=== PATIENT | female | born 1995 | race Caucasian/White ===

== ENCOUNTER → 2020-06-15 | Outpatient (REF) | payer OTHER, MEDICAID ==
[~2020-06-15] MED LIST: LEVO125T4 PO
[2020-06-15 17:40] LABS: ALBUMIN 4.5 GM/DL (3.2-5.2); ALT/SGPT 23 U/L (12-78); BILIRUBIN,TOTAL 0.7 MG/DL (0.2-1.0); BLOOD UREA NITROGEN 16 MG/DL (7-18); CALCIUM LEVEL 8.9 MG/DL (8.5-10.1); CARBON DIOXIDE LEVEL 27 MEQ/L (21-32); CHLORIDE LEVEL 107 MEQ/L (98-107); CHOLESTEROL LEVEL 210 MG/DL (<200); CHOLESTEROL RISK RATIO 3.333 (<5); GLOMERULAR FILTRATION RATE > 60.0 (>60); GLUCOSE, FASTING 78 MG/DL (70-100); HDL CHOLESTEROL 63 MG/DL (>40); LDL CHOLESTEROL 129 MG/DL (<100); NON-HDL-C 147 MG/DL; POTASSIUM SERUM 3.8 MEQ/L (3.5-5.1); SODIUM LEVEL 141 MEQ/L (136-145); TRIGLYCERIDES LEVEL 88 MG/DL (<150)
== END ==
LOC: M LAB REF 16:26
PROVIDERS: ATTEND Family Medicine Addiction Medicine
DX: I78.1 Nevus, non-neoplastic (principal); E03.8 Other specified hypothyroidism

== ENCOUNTER 2020-06-23 20:32 | Emergency (ER) | payer OTHER, MEDICAID ==
[~2020-06-23] VITALS: Ht 175.3 cm; Wt 51.6 kg
[2020-06-23] MEDS ORDERED: LEVO125T4 PO (20:40)
--- NOTE | 2020-06-23 21:34 | REPVR ---
PROCEDURE INFORMATION: Exam: XR Right Ankle Exam date and time: 06/23/2020 9:05 PM Age: 25 years old Clinical indication: Pain; Ankle; Right; Additional info: Pain after fall TECHNIQUE: Imaging protocol: XR Right ankle. Views: 3 or more views. COMPARISON: No relevant prior studies available. FINDINGS: Bones/joints: There is no fracture or dislocation. The ankle mortise is symmetric. The joint spaces are preserved. No arthropathy is noted. Incidental note is made of a bone island in the anterior portion of the right calcaneus. Soft tissues: Unremarkable. IMPRESSION: No fracture dislocation of the right ankle. Electronically signed by: Hamzah Rincon On 06/23/2020 21:34:05 PM
[2020-06-23 23:12] VITALS: BP 104/65
== END 2020-06-23 23:15 | disposition home or self-care (01) ==
LOC: M ED 20:32
DX: S93.491A Sprain of other ligament of right ankle, initial encounter (principal); W18.40XA Slipping, tripping and stumbling without falling, unspecified, initial encounter; Y92.89 Other specified places as the place of occurrence of the external cause; Y93.9 Activity, unspecified; Y99.0 Civilian activity done for income or pay; Z79.899 Other long term (current) drug therapy; Z88.8 Allergy status to other drugs, medicaments and biological substances

== ENCOUNTER 2020-10-15 21:04 | Emergency (ER) | payer OTHER, MEDICAID ==
[~2020-10-15] VITALS: Ht 172.7 cm; Wt 53.2 kg
--- OUTSIDE RECORDS SUMMARY | 2020-10-15 21:13 | CCD ---
Author Organization Unknown Address [address] [place] [address] Phone [phone] Care Team Providers Care Sound Tester Name Role Phone Justin Obrien Unavailable Unavailable Allergies Code Code System Name Reaction Severity Status Onset NKDA Medications Name Status Start Date Stop Date levothyroxine 125 mcg tablet Take 1 tablet every day by oral route. Active Not available levothyroxine 75 mcg tablet Completed 12/2019 Problems Name Status Onset Date Source Hypothyroidism Active 02/21/2020 History Skin Lesion Active 04/19/2020 History Procedures Notes: thyroid removed , Results Lab Results None recorded. Past Encounters 08/14/2020 Exposure to SARS-CoV-2 Justin Obrien MD: [address] [place] [address], Ph. 08/01/2020 Hypothyroidism Justin Obrien MD: [address] [place] [address], Ph. Social History Tobacco Smoking Status Never Smoker Vaccine List None recorded. Plan of Care Reminders Provider Appointments None recorded. Lab None recorded. Referral None recorded. Procedures None recorded. Surgeries None recorded. Imaging None recorded. Vitals 08/01/2020 01:00PM ESTABLISHED [id number] Height Weight BMI Blood Pressure 68 in 114 lbs 3 oz 17.4 kg/m2 108/77 mm[Hg] 04/19/2020 Height Weight Blood Pressure 68 in 115 lbs 3.2 oz 97/63 mm[Hg] 04/17/2020 Height Weight Blood Pressure 68 in 116 lbs 102/68 mm[Hg] 02/21/2020 Height Weight Blood Pressure 68 in 117 lbs 3.2 oz 98/65 mm[Hg]
--- OUTSIDE RECORDS SUMMARY | 2020-10-15 21:13 | CCD ---
Author Author [facility] Organization [facility] Address Unknown Phone Unavailable Care Team Providers Care Field Marketing Associate Name Role Phone Alyson Obrien MD Unavailable Unavailable Alyson Obrien MD Unavailable Unavailable Alyson Obrien MD Unavailable Unavailable Alyson Obrien MD Unavailable Unavailable Alyson Obrien MD Unavailable Unavailable Alyson Obrien MD Unavailable Unavailable Alyson Obrien MD Unavailable Unavailable Alyson Obrien MD Unavailable Unavailable Alyson Obrien MD Unavailable Unavailable Alyson Obrien MD Unavailable Unavailable Alyson Obrien MD Unavailable Unavailable Alyson Obrien MD Unavailable Unavailable Alyson Obrien MD Unavailable Unavailable Alyson Obrien MD Unavailable Unavailable Alyson Obrien MD Unavailable Unavailable Alyson Obrien MD Unavailable Unavailable Alyson Obrien MD Unavailable Unavailable Alyson Obrien MD Unavailable Unavailable Alyson Obrien MD Unavailable Unavailable Alyson Obrien MD Unavailable Unavailable Alyson Obrien MD Unavailable Unavailable Alyson Obrien MD Unavailable Unavailable Alyson Obrien MD Unavailable Unavailable Alyson Obrien MD Unavailable Unavailable Alyson Obrien MD Unavailable Unavailable Alyson Obrien MD Unavailable Unavailable Alyson Obrien MD Unavailable Unavailable Alyson Obrien MD Unavailable Unavailable Alyson Obrien MD Unavailable Unavailable Alyson Obrien MD Unavailable Unavailable Alyson Obrien MD Unavailable Unavailable Alyson Obrien MD Unavailable Unavailable Alyson Obrien MD Unavailable Unavailable Alyson Obrien MD Unavailable Unavailable Alyson Obrien MD Unavailable Unavailable Alyson Obrien MD Unavailable Unavailable Alyson Obrien MD Unavailable Unavailable Alyson Obrien MD Unavailable Unavailable Alyson Obrien MD Unavailable Unavailable Alyson Obrien MD Unavailable Unavailable Alyson Obrien MD Unavailable Unavailable Alyson Obrien MD Unavailable Unavailable Alyson Obrien MD Unavailable Unavailable Alyson Obrien MD Unavailable Unavailable Alyson Obrien MD Unavailable Unavailable Alyson Obrien MD Unavailable Unavailable Alyson Obrien MD Unavailable Unavailable Alyson Obrien MD Unavailable Unavailable Alyson Obrien MD Unavailable Unavailable Alyson Obrien MD Unavailable Unavailable Alyson Obrien MD Unavailable Unavailable Alyson Obrien MD Unavailable Unavailable Alyson Obrien MD Unavailable Unavailable Alyson Obrien MD Unavailable Unavailable Alyson Obrien MD Unavailable Unavailable Alyson Obrien MD Unavailable Unavailable Alyson Obrien MD Unavailable Unavailable Alyson Obrien MD Unavailable Unavailable Alyson Obrien MD Unavailable Unavailable Alyson Obrien MD Unavailable Unavailable Alyson Obrien MD Unavailable Unavailable Alyson Obrien MD Unavailable Unavailable Alyson Obrien MD Unavailable Unavailable Alyson Obrien MD Unavailable Unavailable Alyson Obrien MD Unavailable Unavailable Alyson Obrien MD Unavailable Unavailable Alyson Obrien MD Unavailable Unavailable Alyson Obrien MD Unavailable Unavailable Alyson Obrien MD Unavailable Unavailable Alyson Obrien MD Unavailable Unavailable Aylson Obrien MD Unavailable Unavailable Alyson Obrien MD Unavailable Unavailable Alyson Obrien MD Unavailable Unavailable Alyson Obrien MD Unavailable Unavailable Alyson Obrien MD Unavailable Unavailable Alyson Obrien MD Unavailable Unavailable Alyson Obrien MD Unavailable Unavailable Alyson Obrien MD Unavailable Unavailable Alyson Obrien MD Unavailable Unavailable Alyson Obrien MD Unavailable Unavailable Alyson Obrien MD Unavailable Unavailable Alyson Obrien MD Unavailable Unavailable Alyson Obrien MD Unavailable Unavailable Alyson Obrien MD Unavailable Unavailable Alyson Obrien MD Unavailable Unavailable Alyson Obrien MD Unavailable Unavailable Alyson Obrien MD Unavailable Unavailable Alyson Obrien MD Unavailable Unavailable Alyson Obrien MD Unavailable Unavailable Alyson Obrien MD Unavailable Unavailable Alyson Obrien MD Unavailable Unavailable Alyson Obrien MD Unavailable Unavailable Alyson Obrien MD Unavailable Unavailable Alyson Obrien MD Unavailable Unavailable Alyson Obrien MD Unavailable Unavailable Alyson Obrien MD Unavailable Unavailable Alyson Obrien MD Unavailable Unavailable Alyson Obrien MD Unavailable Unavailable Alyson Obrien MD Unavailable Unavailable Alyson Obrien MD Unavailable Unavailable Alyson Obrien MD Unavailable Unavailable Alyson Obrien MD Unavailable Unavailable Alyson Obrien MD Unavailable Unavailable Alyson Obrien MD Unavailable Unavailable Alyson Obrien MD Unavailable Unavailable Alyson Obrien MD Unavailable Unavailable Alyson Obrien MD Unavailable Unavailable Alyson Obrien MD Unavailable Unavailable Alyson Obrien MD Unavailable Unavailable Alyson Obrien MD Unavailable Unavailable Alyson Obrien MD Unavailable Unavailable Alyson Obrien MD Unavailable Unavailable Alyson Obrien MD Unavailable Unavailable Alyson Obrien MD Unavailable Unavailable Alyson Obrien MD Unavailable Unavailable Alyson Obrien MD Unavailable Unavailable Alyson Obrien MD Unavailable Unavailable Alyson Obrien MD Unavailable Unavailable Alyson Orbien MD Unavailable Unavailable Alyson Obrien MD Unavailable Unavailable Alyson Obrien MD Unavailable Unavailable Alyson Obrien MD Unavailable Unavailable Obrien, Alyson Anderson MD Unavailable Unavailable Obrien, Alyson Anderson MD Unavailable Unavailable Obrien, Alyson Anderson MD Unavailable Unavailable Obrien, Alyson Anderson MD Unavailable Unavailable Obrien, Alyson Anderson MD Unavailable Unavailable Obrien, Alyson Anderson MD Unavailable Unavailable Obrien, Alyson Anderson MD Unavailable Unavailable Obrien, Alyson Anderson MD Unavailable Unavailable Obrien, Alyson Anderson MD Unavailable Unavailable Obrien, Alyson Anderson MD Unavailable Unavailable Obrien, Alyson Anderson MD Unavailable Unavailable Obrien, Alyson Anderson MD Unavailable Unavailable Obrien, Alyson Anderson MD Unavailable Unavailable Obrien, Alyson Anderson MD Unavailable Unavailable Obrien, Alyson Anderson MD Unavailable Unavailable Obrien, Alyson Anderson MD Unavailable Unavailable Obrien, Alyson Anderson MD Unavailable Unavailable Obrien, Alyson Anderson MD Unavailable Unavailable Obrien, Alyson Anderson MD Unavailable Unavailable Obrien, Alyson Anderson MD Unavailable Unavailable Obrien, Alyson Anderson MD Unavailable Unavailable Obrien, Alyson Anderson MD Unavailable Unavailable Obrien, Alyson Anderson MD Unavailable Unavailable Obrien, Alyson Anderson MD Unavailable Unavailable Obrien, Alyson Anderson MD Unavailable Unavailable Obrien, Alyson Anderson MD Unavailable Unavailable Obiren, Alyson Anderson MD Unavailable Unavailable Obrien, Alyson Anderson MD Unavailable Unavailable Obrien, Alyson Anderson MD Unavailable Unavailable Obrien, Alyson Anderson MD Unavailable Unavailable Obrien, Alyson Anderson MD Unavailable Unavailable Obrien, Alyson Anderson MD Unavailable Unavailable Obrien, Alyson Anderson MD Unavailable Unavailable Obrien, Alyson Anderson MD Unavailable Unavailable Obrien, Alyson Anderson MD Unavailable Unavailable Obrien, Alyson Anderson MD Unavailable Unavailable Obrien, Alyson Anderson MD Unavailable Unavailable Obrien, Alyson Anderson MD Unavailable Unavailable Obrien, Alyson Anderson MD Unavailable Unavailable Obrien, Alyson Anderson MD Unavailable Unavailable Obrien, Alyson Anderson MD Unavailable Unavailable Obrien, Alyson Anderson MD Unavailable Unavailable Obrien, Alyson Anderson MD Unavailable Unavailable Obrien, Alyson Anderson MD Unavailable Unavailable Obrien, Alyson Anderson MD Unavailable Unavailable Obrien, Alyson Anderson MD Unavailable Unavailable Obrien, Alyson Anderson MD Unavailable Unavailable Obrien, Alyson Anderson MD Unavailable Unavailable Obrien, Alyson Anderson MD Unavailable Unavailable Obrien, Alyson Anderson MD Unavailable Unavailable Obrien, Alyson Anderson MD Unavailable Unavailable Obrien, Alyson Anderson MD Unavailable Unavailable Obrien, Alyson Anderson MD Unavailable Unavailable Obrien, Alyson Anderson MD Unavailable Unavailable Obrien, Alyson Anderson MD Unavailable Unavailable Obrien, Alyson Anderson MD Unavailable Unavailable Re-disclosure Warning The records that you are about to access may contain information from federally-assisted alcohol or drug abuse programs. If such information is present, then the following federally mandated warning applies: This information has been disclosed to you from records protected by federal confidentiality rules (42 CFR part 2). The federal rules prohibit you from making any further disclosure of this information unless further disclosure is expressly permitted by the written consent of the person to whom it pertains or as otherwise permitted by 42 CFR part 2. A general authorization for the release of medical or other information is NOT sufficient for this purpose. The Federal rules restrict any use of the information to criminally investigate or prosecute any alcohol or drug abuse patient.The records that you are about to access may contain highly sensitive health information, the redisclosure of which is protected by Article 27-F of the [facility] Public Health law. If you continue you may have access to information: Regarding HIV / AIDS; Provided by facilities licensed or operated by the [facility] Office of Mental Health; or Provided by the [facility] Office for People With Developmental Disabilities. If such information is present, then the following [facility] mandated warning applies: This information has been disclosed to you from confidential records which are protected by state law. State law prohibits you from making any further disclosure of this information without the specific written consent of the person to whom it pertains, or as otherwise permitted by law. Any unauthorized further disclosure in violation of state law may result in a fine or correction sentence or both. A general authorization for the release of medical or other information is NOT sufficient authorization for further disc losure. Encounters Encounter Providers Location Date Indications Data Source(s ) Justin Obrien MD: [address] [place] [address] [phone], Ph. Attender: Justin Obrien MD [facility] Medical 08/14/2020 12:00:00 AM EST [facility] ([facility]) Outpatient Attender: Justin Obrien MD 08/01/2020 12:47:[address] [facility] Justin Obrien MD: [address] [place] [address] [phone], Ph. Attender: Justin Obrien MD [facility] Medical 08/01/2020 12:00:00 AM EST [facility] ([facility]) Justin Obrien MD: [address] [place] [address] [phone], Ph. Attender: Justin Obrien MD [facility] Medical 08/01/2020 12:00:00 AM EST [facility] ([facility]) Outpatient Attender: Justin Obrien MD 07/12/2020 05:54:01 PM EDT [facility] Outpatient Attender: Justin Obrien MD FP 07/12/2020 05:46:00 PM EDT [facility] Outpatient Attender: Justin Obrien MD FP 07/05/2020 01:03:05 PM EDT [facility] Outpatient Attender: Justin Obrien MD FP 06/28/2020 11:52:01 AM EDT [facility] Outpatient Attender: Justin Obrien MD FP 06/22/2020 06:07:01 PM EDT [facility] Outpatient Attender: Justin Obrien MD FP 06/15/2020 06:01:01 PM EDT [facility] Outpatient Attender: Justin Obrien MD FP 06/15/2020 06:01:00 PM EDT [facility] Outpatient Attender: Justin Obrien MD FP 06/13/2020 05:26:01 PM EDT [facility] Outpatient Attender: Justin Obrien MD FP 04/19/2020 01:14:01 PM EDT [facility] Outpatient Attender: Justin Obrien MD FP 04/19/2020 11:40:00 AM EDT [facility] Outpatient Attender: Justin Obrien MD FP 04/19/2020 11:39:01 AM EDT [facility] Outpatient Attender: Justin Obrien MD FP 04/19/2020 10:46:01 AM EDT [facility] Outpatient Attender: Justin Obrien MD FP 04/17/2020 02:32:01 PM EDT [facility] Outpatient Attender: Justin Obrien MD FP 04/17/2020 12:50:00 PM EDT [facility] Outpatient Attender: Justin Obrien MD FP 04/16/2020 10:36:00 AM EDT [facility] Outpatient Attender: Justin Obrien MD FP 04/12/2020 10:44:03 AM EDT [facility] Outpatient Attender: Justin Obrien MD FP 04/12/2020 10:44:01 AM EDT [facility] Outpatient Attender: Justin Obrien MD FP 04/12/2020 10:41:01 AM EDT [facility] Outpatient Attender: Justin Obrien MD FP 04/12/2020 10:39:02 AM EDT [facility] Outpatient Attender: Justin Obrien MD FP 04/12/2020 10:39:01 AM EDT [facility] Outpatient Attender: Justin Obrien MD FP 04/09/2020 02:24:[address] [facility] Outpatient Attender: Justin Obrien MD 03/28/2020 11:03:[address] [facility] Outpatient Attender: Justin Obrien MD 03/28/2020 11:02:[address] [facility] Outpatient Attender: Justin Obrien MD 02/22/2020 01:10:[address] [facility] Outpatient Attender: Justin Obrien MD 02/22/2020 01:09:[address] [facility] Outpatient Attender: Justin Obrien MD 02/22/2020 11:51:[address] [facility] Outpatient Attender: Justin Obrien MD 02/21/2020 04:31:[address] [facility] Outpatient Attender: Justin Obrien MD 02/21/2020 04:23:[address] [facility] Outpatient Attender: Justin Obrien MD 02/21/2020 03:06:[address] [facility] Outpatient Attender: Justin Obrien MD 02/21/2020 03:04:[address] [facility] Outpatient Attender: Justin Obrien MD 02/21/2020 01:47:[address] [facility] Medications Medication Brand Name Start Date Product Form Dose Route Admi nistrative Instructions Pharmacy Instructions Status Indications Reaction Description Data Source(s) 75 mcg 11/26/2019 12:00:00 AM EST tablet 30 TAKE ONE TABLET BY MOUTH EVERY DAY TAKE ONE TABLET BY MOUTH EVERY DAY SOLD: 11/29/2019 [facility] 75 mcg 08/17/2019 12:00:00 AM EST tablet 90 TAKE ONE TABLET BY MOUTH EVERY DAY TAKE ONE TABLET BY MOUTH EVERY DAY SOLD: 08/17/2019 [facility] Levothyroxine Sodium 0.075 MG Oral Tablet levothyroxin e 75 mcg tablet levothyroxine 75 mcg tablet completed levothyroxine sodium 0.075 MG Oral Tablet [facility] ([facility]) Levothyroxine Sodium 0.075 MG Oral Tablet levothyroxin e 75 mcg tablet levothyroxine 75 mcg tablet completed levothyroxine sodium 0.075 MG Oral Tablet [facility] ([facility]) Insurance Providers Payer name Policy type / Coverage type Policy ID Covered democrat ID Covered democrat's relationship to whittaker Policy Whittaker Plan Information KATIE [id number] SP [id number] [employer] [facility] [id number] [id number] [facility] O [id number] S [id number] Medicaid S [id number] S [id number] Managed Care - [facility] Community Plan P [id number] S [id number] Medicaid S [id number] S [id number] Managed Care - [facility] Community Plan P UNAVAILABLE S UNAVAILABLE Medicaid S UNAVAILABLE S UNAVAILA BLE Self Pay P UNAVAILABLE S UNAVAILA BLE Problems, Conditions, and Diagnoses Code Display Name Description Problem Type Effective Dates Data Source(s) I78.1 Nevus, non-neoplastic Nevus, non-neoplastic 11:38:[address] [facility] [id number] Skin lesion Skin Lesion Problem 04/19/2020 12:00:00 AM EDT [place] ([facility]) [id number] Skin lesion Skin Lesion Problem 04/19/2020 12:00:00 AM EDT [facility]) [id number] Other specified hypothyroidism Other specified hypothy roidism 02/22/2020 01:08:[address] [facility] 94413579 Hypothyroidism Hypothyroidism Problem 02/21/2020 12:00: 00 AM EDT [place] ([facility]) [id number] Hypothyroidism Hypothyroidism Problem 02/21/2020 12:00: 00 AM EDT [place] ([facility]) Results ID Date Data Source [id number] 06/15/2020 02:06:[address] [facility] Labs In-House Blood TestsDate/Time Colle cted: 06/15/2020Test Result Reference Range Normal ValueComments: blood drawKarime Monge, July 12, 2020 2:07 PMAssessment & Plan Orders:[id number] Vst-Est Level I [CPT- 79994] 62393 - Venipuncture [CPT-71822] Name Value Range Interpretation Code Description Data Nisreen rce(s) Supporting Document(s) ID Date Data Source [id number] 06/15/2020 11:25:[address] [facility] Name Value Range Interpretation Code Description Data Nisreen rce(s) Supporting Document(s) BG FASTING 78 mg/dL 70-100 [address] [facility] TSH 7.380 microintl units/mL 0.358-3.740 [facility] ID Date Data Source [id number] 04/19/2020 11:03:[address] [facility] Measurements & CalculationsHeight: 68 inches (5 ft. 8 in.) 172.72 cm Weight: 115.2 pounds 52.36 kg Body Mass Index (BMI): 17.58BMI Interpretation: UnderweightBody Surface Area (BSA): 1.62Weight Management Education Done (Nutrition/Physical Activity)Vital SignsTemperature: 97.6FPulse Rate: 97 beats/minuteRespiratory Rate: 16 respirations/minuteBlood Pressure: 97/63 O2 Saturation: 100% Vital Signs performed by: Kera Hendrix MA, April 19, 2020 11:03 AMInitial Intake Information From: patientRoom #: 14Infectious Disease / Travel ScreeningRecent travel for you or any close contacts? NoHave you had any close contact with anyone diagnosed with or under investigation for COVID-19 (coronavirus)? NoFever? NoRespiratory symptoms: cough, cold, congestion, shortness of breath, difficulty breathing? NoLoss of smell? NoLoss of taste? NoSmoking, Tobacco, Vaping or Smoke Exposure StatusSmoke Status: current every day smokerTobacco Use: YesAdv to Quit: YesDo you vape? YesCessation advice given: YesWhat is in your device? nicotineFrequency: current every day vaperMenstrual HistoryLast Menstrual Period (LMP): 03/14/2020Any possibility of ? NoHealthcare HistorySince your last office visit...Have you been admitted to the hospital? NoHave you been to an emergency room (ER) or urgent care clinic? NoHave you seen another healthcare provider? NoHave you seen a dentist? NoIntake performed by: Kera Hendrix MA, April 19, 2020 11:04 AMRate Your HealthIn general, would you say your health is? PoorPain AssessmentAre you currently having any pain which... You would like your provider to address? No Affects your activity level? NoDepression Screening - PHQ-2Over the last two weeks, have you... Had little interest or pleasure in doing things? Not at all Been feeling down, depressed, or hopeless? Not at all PHQ-2 Score: 0Anxiety Screening - CYNTHIA-2Over the last two weeks, have you been... Feeling nervous, anxious, or on edge? Not at all Unable to stop or control worrying? Not at all CYNTHIA-2 Score: 0Screening, Brief Intervention, & Referral to Treatment (SBIRT)Pre-Screening Questions How many times have you have 4 or more drinks in a day? 0How many times have you used an illegal drug or used a prescription medication for a non-medical reason? 0Performed by: Kera Hendrix MA, April 19, 2020 11:04 AMPatient History Medical History:thyroid depression bipolarADHDH pilori Surgical History:thyroid removed Family History:pt was adopted unkown family history Social/Personal History: Advised to Quit/Tobacco Education: YesChief Complaintlabs/ mole on back for 1.5 monthsHistory of Present Illness (HPI)Her noticed the spot which is just about her bra strap in back last and then it fell off. She will has a dark spot there. No pain and no itching.Still feeling fatigued. Her TSH was 58 when we checked and we increased her from 75 to 125 daily. She is having problems gaining weight as well. History of Graves Disease with thyroidectomy last year. She moved before she could fully follow up on this.HPI performed by: Justin Obrien MD, April 19, 2020 11:16 AMProblem ReviewProblem List was reviewed and/or updated during this visit.Medication Reconciliation & ReviewMedication List was reviewed and/or updated during this visit, including review of any [id number] medications, herbal therapies, and/or supplements.Allergy ReviewAllergy List was reviewed and/or updated during this visit.Adult Preventive CareProvider Calculated and Reviewed all Clinical Protocols for patient today. Screening Tobacco Screening: Smoking Status: current every day smoker (04/19/2020) Tobacco Use: Currently (04/19/2020) Advised to Quit: Yes (04/19/2020)Labs/Meds/Other Counseling- Nutrition and Physical Activity:BMI Interpretation: Underweight (04/19/2020) Counseling: Done (04/19/2020) Physical Activity: Done (04/19/2020)Cancer Screening Pap Smear/HPV TestingReviewed: Previous Comments: [place] year in [place] (02/21/2020)Review of Systems General: Complains of see HPI, fatigue. Denies chills, dizziness, fever. Cardiovascular: Denies chest pain, palpitations, feeling faint. Respiratory: Denies shortness of breath. Physical ExamGeneral Appearance: well nourished, well hydrated, no acute distressNeck: supple, no masses, trachea midline, full range of motion of neckThyroid: no nodules, masses, tenderness, or enlargementRespiratory, Auscultation: clear to auscultation bilaterally; no rales, rhonchi, or wheezesRespiratory, Effort: no intercostal retractions or use of accessory musclesCardiovascular, Auscultation: S1, S2 audible; no murmur, rub, or gallop; RRRSkin, Inspection: Small hyperpigmented lesion mid-thoracic back with small open but healing area in center.Rate Your HealthIn general, would you say your health is? 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 She will give this some time to work and recheck here in 2 months with a TSH before this next visit.Reviewed the symptoms of hyperthyroidism (including weight loss) and she will follow up sooner if these develop.Patient Instructions/Care Plan: Other specified hypothyroidism: We recently increased the dose of levothyroxine based on fatigue and a markedly elevated TSH. She will give this some time to work and recheck here in 2 months with a TSH before this next visit.Reviewed the symptoms of hyperthyroidism (including weight loss) and she will follow up sooner if these develop.Nevus- non-neoplastic: This is likely non cncerous but I am concerned enough about the recent onset of this to recommend dermaology referral and she is amenable to this. Plan developed in collaboration with patient and/or familyMedications:NEXPLANON IMPLANTLEVOTHYROXINE SODIUM 125 MCG ORAL TABLETAllergies:No Known Allergies (updated 04/17/2020) Orders:Adult - Ofc Vst, EST, Level III [CPT-60859] TSH [CPT-93634] Dermatology Consult [CPT-44927] Name Value Range Interpretation Code Description Data Nisreen rce(s) Supporting Document(s) ID Date Data Source [id number] 04/17/2020 01:11:[address] [facility] Measurements & CalculationsHeight: 68 inches (5 ft. 8 in.) 172.72 cm Weight: 116 pounds 52.73 kg Body Mass Index (BMI): 17.70BMI Interpretation: UnderweightBody Surface Area (BSA): 1.62Weight Management Education Done (Nutrition/Physical Activity)Vital SignsTemperature: 98.3FPulse Rate: 90 beats/minuteRespiratory Rate: 16 respirations/minuteBlood Pressure: 102/68 Vital Signs performed by: Kera Hendrix MA, April 17, 2020 1:16 PMInitial Intake Information From: patientRoom #: 12Infectious Disease / Travel ScreeningRecent travel for you or any close contacts? NoHave you had any close contact with anyone diagnosed with or under investigation for COVID-19 (coronavirus)? NoFever? NoRespiratory symptoms: cough, cold, congestion, shortness of breath, difficulty breathing? NoLoss of smell? NoLoss of taste? NoSmoking, Tobacco, Vaping or Smoke Exposure StatusSmoke Status: current every day smokerTobacco Use: YesAdv to Quit: YesDo you vape? YesCessation advice given: YesWhat is in your device? nicotineFrequency: current some day vaperMenstrual HistoryLast Menstrual Period (LMP): 03/14/2020Any possibility of ? NoHealthcare HistorySince your last office visit...Have you been admitted to the hospital? NoHave you been to an emergency room (ER) or urgent care clinic? NoHave you seen another healthcare provider? NoHave you seen a dentist? NoIntake performed by: Kera Hendrix MA, April 17, 2020 1:14 PMRate Your HealthIn general, would you say your health is? PoorPain AssessmentAre you currently having any pain which. .. You would like your provider to address? No Affects your activity level? NoDepression Screening - PHQ-2Over the last two weeks, have you... Had little interest or pleasure in doing things? Not at all Been feeling down, depressed, or hopeless? Not at all PHQ-2 Score: 0Anxiety Screening - CYNTHIA-2Over the last two weeks, have you been... Feeling nervous, anxious, or on edge? Not at all Unable to stop or control worrying? Not at all CYNTHIA-2 Score: 0Screening, Brief Intervention, & Referral to Treatment (SBIRT)Pre-Screening Questions How many times have you have 4 or more drinks in a day? 0How many times have you used an illegal drug or used a prescription medication for a non- medical reason? 0Performed by: Kera Hendrix MA, April 17, 2020 1:15 PMPatient History Medical History:thyroid depression bipolarADHDH pilori Surgical History:thyroid removed Family History:pt was adopted unkown family history Social/Personal History: Advised to Quit/Tobacco Education: YesChief Complaintla b results, mole on back HPI performed by: Justin Obrien MD, April 17, 2020 1:44 PMProblem ReviewProblem List was reviewed and/or updated during this visit.Medication Reconciliation & ReviewMedication List was reviewed and/or updated during this visit, including review of any yuqc-jyq-oebeprw medications, herbal therapies, and/or supplements.Allergy ReviewAllergy List was reviewed and/or updated during this visit. Patient has no known allergies.Adult Preventive CareScreening Tobacco Screening: Smoking Status: current every day smoker (04/17/2020) Tobacco Use: Currently (04/17/2020) Advised to Quit: Yes (04/17/2020)Labs/Meds/Other Counseling-Nutrition and Physical Activity:BMI Interpretation: Underweight (04/17/2020) Counseling: Done (04/17/2020) Physical Activity: Done (04/17/2020)Rate Your HealthIn general, would you say your health is? PoorAssessment & Plan Problems:Assessed:Other specified hypothyroidism (BDC07-C04.8) Assessment: Instructions: PATIIENT NOT SEEN BY PROVIDER TODAY. HAD TO GO TO WORK AND PROVIDER HAD AN OFFICE EMERGENCY.She will reschedule in the near future for this. She was already made aware that her thyroid dose is too low and this has been adjusted. The remainder of her labs look normal.Patient Instructions/Care Plan: Other specified hypothyroidism: PATIIENT NOT SEEN BY PROVIDER TODAY. HAD TO GO TO WORK AND PROVIDER HAD AN OFFICE EMERGENCY.She will reschedule in the near future for this. She was already made aware that her thyroid dose is too low and this has been adjusted. The remainder of her labs look normal. Plan developed in collaboration with patient and/or familyMedications:NEXPLANON IMPLANTLEVOTHYROXINE SODIUM 125 MCG ORAL TABLETAllergies:No Known Allergies (updated 04/17/2020) Orders:Adult - Ofc Vst, EST, Level I [CPT-43498] Name Value Range Interpretation Code Description Data Nisreen rce(s) Supporting Document(s) ID Date Data Source [id number] 04/11/2020 12:45:[address] [facility] Name Value Range Interpretation Code Description Data Nisreen rce(s) Supporting Document(s) BG FASTING 70 mg/dL 70-100 [facility] TSH 58.600 microintl units/mL 0.358-3.740 [facility] ID Date Data Source [id number] 04/11/2020 12:45:[address] [facility] Name Value Range Interpretation Code Description Data Nisreen rce(s) Supporting Document(s) HCT 42.4 % 36.0-47.[address] [facility] HGB 13.2 g/dL 12.0-15.[address] [facility] MCH 31.1 G/DL pg 32.0-36.5 L [facility] MCHC 27.5 PG % 27.0-33.0 [facility] PLATELETS 184 10 10*3/mm3 150-[address] [facility] RBC 4.80 10 10*6/mm3 4.00-5.40 [facility] RDW 12.9 % 11.5-14.5 [facility] WBC TOTAL 7.6 4.0-10.0 [facility] ID Date Data Source [id number] 04/11/2020 10:52:[address] [facility] Labs In-House Blood TestsDate/Time Colle cted: April 11, 2020 9:50 AMTest Result Reference Range Normal ValueComments: Blood drawn in office; Left AC. Tolerated well.Kiana Akhtar MA, April 11, 2020 10:54 AMAssessment & Plan Orders:[id number] Vst-Est Level I [CPT-40600] 02996 - Venipuncture [CPT-94489] Name Value Range Interpretation Code Description Data Nisreen rce(s) Supporting Document(s) ID Date Data Source [id number] 02/21/2020 03:05:[address] [facility] Measurements & CalculationsHeight: 68 inches (5 ft. 8 in.) 172.72 cm Weight: 117.2 pounds 53.27 kg Body Mass Index (BMI): 17.88BMI Interpretation: UnderweightBody Surface Area (BSA): 1.63Weight Management Education Done (Nutrition/Physical Activity)Vital SignsTemperature: 98.5FPulse Rate: 72 beats/minuteRespiratory Rate: 18 respirations/minuteBlood Pressure: 98/65 O2 Saturation: 99% Vital Signs performed by: Kera Hendrix MA, February 21, 2020 3:15 PMInitial Intake Information From: patientRoom #: 13Infectious Disease / Travel ScreeningRecent travel for you or any close contacts? NoHave you had any close contact with anyone diagnosed with or under investigation for COVID-19 (coronavirus)? NoFever? NoRespiratory symptoms: cough, cold, congestion, shortness of breath, difficulty breathing? NoLoss of smell? NoLoss of taste? NoSmoking, Tobacco, Vaping or Smoke Exposure StatusSmoke Status: current some day smokerTobacco Use: YesAdv to Quit: YesDo you vape? YesCessation advice given: YesWhat is in your device? nicotineFrequency: current some day vaperPassive Smoke Exposure: YesMenstrual HistoryLast Menstrual Period (LMP): 01/06/2020Any possibility of ? NoComments: nexplanon Healthcare HistorySince your last office visit...Have you been admitted to the hospital? NoHave you been to an emergency room (ER) or urgent care clinic? NoHave you seen another healthcare provider? NoHave you seen a dentist? NoIntake performed by: Kera Hendrix MA, February 21, 2020 3:08 PMRate Your HealthIn general, would you sa y your health is? FairPain AssessmentAre you currently having any pain which... You would like your provider to address? No Affects your activity level? NoDepression Screening - PHQ-2Over the last two weeks, have you... Had little interest or pleasure in doing things? Not at all Been feeling down, depressed, or hopeless? Several days PHQ-2 Score: 1Anxiety Screening - CYNTHIA-2Over the last two weeks, have you been... Feeling nervous, anxious, or on edge? Several days Unable to stop or control worrying? Not at all CYNTHIA-2 Score: 1Generalized Anxiety Disorder 7-Item Screening (CYNTHIA-7)Answer Guide:0 = Not at all1 = Several days2 = Over half the days3 = Nearly every dayOver the last 2 weeks, how often have you been bothered by the following problems?Feeling nervous, anxious, or on edge: 1Not being able to stop or control worryinWorrying too much about different things: 0Trouble relaxinBeing so restless that it's hard to sit still: 0Becoming easily annoyed or irritable: 3Feeling af raid as if something awful might happen: 1Answer Guide:0 = Not difficult at all1 = Somewhat difficult2 = Very difficult3 = Extremely difficultHow difficult have these made it for you to do your work, take care of things at home, or get along with other people? 0GAD-7 Screening Results CYNTHIA-2 Score: 1GAD-7 Score: 5Functional Impairment: Somewhat difficultRecommendation: Mild anxietyPHQ-9 1. Over the last 2 weeks, patient reports the following frequency of symptoms: a. Little interest or pleasure in doing things - Not at all b. Feeling down, depressed, or hopeless -Several days c. Trouble falling asleep, staying asleep, or sleeping too much -Nearly every day d. Feeling tired or having little energy -Nearly every day e. Poor appetite or overeating -Nearly every day f. Feeling bad about yourself, feeling that you are a failure, or feeling that you have let yourself or your family down -Not at all g. Trouble concentrating on things such as reading the newspaper or watching television -Not at all h. Moving or speaking so slowly that other people could have noticed. Or being so fidgety or restless that you have been moving around a lot more than usual -Not at all i. Thinking that you would be better off or that you want to hurt yourself in some way -Not at all2. If you checked off any problems, how difficult have these problems made it for you to do your work, take care of things at home, or get along with other people? -Somewhat DifficultToday's PHQ-9 Results Score: 10 Severity: Moderate Diagnosis Recommendation: No recommendation Functional Impairment: Somewhat DifficultPRAPARE Sociodemographic Characteristics Race: White Ethnicity: Not or Preferred Language: EnglishScreening, Brief Intervention, & Referral to Treatment (SBIRT)Pre- Screening Questions How many times have you have 4 or more drinks in a day? 0How many times have you used an illegal drug or used a prescription medication for a non-medical reason? 0Performed by: Kera Hendrix MA, February 21, 2020 3:11 PMPatient History Medical History:thyroid depression bipolarADHDH pilori Surgical History:thyroid removed Family History:pt was adopted unkown family history Social/Personal History: Advised to Quit/Tobacco Education: YesChief Complaintestablish care, referral to endoHistory of Present Illness (HPI)thyroid removed last year in [place] for non-cancerous gioter. No records avaiable tosarah beth oconnell.Feeling more tired lately than she was. Has been on her current dose of Synthroid since the surgery. It has been over a year since she was last seen and had blood tests done.She is otherwise feeling well.HPI performed by: Justin Obrien MD, February 21, 2020 3:19 PMProblem ReviewProblem List was reviewed and/or updated during this visit.Medication Reconciliation & ReviewMedication List was reviewed and/or updated during this visit, including review of any [id number]-[id number] medications, herbal therapies, and/or supplements.Allergy ReviewAllergy List was reviewed and/or updated during this visit.Adult Preventive CareScreening Tobacco Screening: Smoking Status: current some day smoker (02/21/2020) Tobacco Use: Currently (02/21/2020) Advised to Quit: Yes (02/21/2020)Labs/Meds/Other Counseling-Nutrition and Physical Activity:BMI Interpretation: Underweight (02/21/2020) Counseling: Done (02/21/2020) Physical Activity: Done (02/21/2020)Cancer Screening Pap Smear/HPV TestingReviewed: Today's Comments[place] Review of Systems General: Complains of see HPI, fatigue. Cardiovascular: Denies chest pain. Respiratory: Denies difficulty breathing. Gastrointestinal: Complains of constipation. Since childhood and no changes.Endocrine: Denies cold intolerance, heat intolerance, weight loss, weight gain. Physical ExamGeneral Appearance: well nourished, well hydrated, no acute distressThyroid: no nodules, masses, tenderness, or enlargementRespiratory, Auscultation: clear to auscultation bilaterally; no rales, rhonchi, or wheezesRespiratory, Effort: no intercostal retractions or use of accessory musclesCardiovascular, Auscultation: S1, S2 audible; no murmur, rub, or gallop; RRRPeripheral Circulation: no clubbing, cyanosis, edema, or varicositiesGait & Station: normalSkin, Inspection: no rashes, lesions, or ulcerationsOrientation: oriented to time, place, and personMood & Affect: no depression, anxiety, or agitationJudgment & Insight: intactRate Your HealthIn general, would you say your health is? FairAssessment & Plan Problems:Added: Other specified hypothyroidism (PPQ67-X91.8) Assessment: Instructions: Status post thyroidectomy last year.Doing OK with the exception of some fatigue.She is on a fairly low dose for someone without a thyroid.We will check fasting blood tests soon and if TSH is above 2 consider an increase in dose.Patient Instructions/Care Plan: Other specified hypothyroidism: Status post thyroidectomy last year.Doing OK with the exception of some fatigue.She is on a fairly low dose for someone without a thyroid.We will check fasting blood tests soon and if TSH is above 2 consider an increase in dose. Plan developed in collaboration with patient and/or familyMedications:NEXPLANON IMPLANTSYNTHROID 75 MCG ORAL TABLETMedication Changes:Added: NEXPLANON IMPLANTNew Prescription:SYNTHROID 75 MCG ORAL TABLET-one tab daily Qty: 30[Tablet] Refills: 2 Method: ElectronicOrders:Adult - Ofc Vst, NEW, Level II [CPT-41517] COMP METABOLIC PANEL [CPT-56363] CBC W/DIFF [CPT-00047] LIPID PANEL [CPT-92927] TSH [CPT-90996] Medications:SYNTHROID 75 MCG ORAL TABLET (LEVOTHYROXINE SODIUM) one tab daily #30[Tablet] x 2 Route:ORAL Entered and Authorized by: Justin Obrien MD Method used: Electronically to [facility]* (retail) [address] [place] [address] Note to Pharmacy: Route: ORAL; RxID: [id number] signed by Justin Obrien MD on 02/22/2020 at 1:08 PM Name Value Range Interpretation Code Description Data Nisreen rce(s) Supporting Document(s) Procedure Vital Signs ID Date Data Source UNK Name Value Range Interpretation Code Description Data Source(s) Body weight 1827 [oz_av] 1827 [oz_av] ERIC ([facility]) Systolic blood pressure 108 mm[Hg] 108 mm[Hg] A [facility]) Body mass index (BMI) [Ratio] 17.4 kg/m2 17.4 k g/m2 [facility]) Body height 68 [in_i] 68 [in_i] ERIC ([facility]) Diastolic blood pressure 77 mm[Hg] 77 mm[Hg] ERIC ([facility]) Body weight 1827 [oz_av] 1827 [oz_av] ERIC ([facility]) Systolic blood pressure 108 mm[Hg] 108 mm[Hg] A [facility]) Body mass index (BMI) [Ratio] 17.4 kg/m2 17.4 k [facility] 68 [in_i] 68 [in_i] ERIC ([facility]) Diastolic blood pressure 77 mm[Hg] 77 mm[Hg] ERIC ([facility]) Body weight 1843.2 [oz_av] 1843.2 [oz_av] ATHEN A ([facility]) Systolic blood pressure 97 mm[Hg] 97 mm[Hg] A THENA ([facility]) Body height 68 [in_i] 68 [in_i] ERIC ([facility]) Diastolic blood pressure 63 mm[Hg] 63 mm[Hg] ERIC ([facility]) Body weight 1843.2 [oz_av] 1843.2 [oz_av] ATHEN A ([facility]) Systolic blood pressure 97 mm[Hg] 97 mm[Hg] A THENA ([facility]) Body height 68 [in_i] 68 [in_i] ERIC ([facility]) Diastolic blood pressure 63 mm[Hg] 63 mm[Hg] ERIC ([facility]) Body weight 1856 [oz_av] 1856 [oz_av] ERIC ([facility]) Systolic blood pressure 102 mm[Hg] 102 mm[Hg] A THENA ([facility]) Body height 68 [in_i] 68 [in_i] ERIC ([facility]) Diastolic blood pressure 68 mm[Hg] 68 mm[Hg] ERIC ([facility]) Body weight 1856 [oz_av] 1856 [oz_av] ERIC ([facility]) Systolic blood pressure 102 mm[Hg] 102 mm[Hg] A [facility] ([facility]) Body height 68 [in_i] 68 [in_i] ERIC ([facility]) Diastolic blood pressure 68 mm[Hg] 68 mm[Hg] ERIC ([facility]) Body weight 1875.2 [oz_av] 1875.2 [oz_av] ATHEN A ([facility]) Systolic blood pressure 98 mm[Hg] 98 mm[Hg] A THENA ([facility]) Body height 68 [in_i] 68 [in_i] ERIC ([facility]) Diastolic blood pressure 65 mm[Hg] 65 mm[Hg] ERIC ([facility]) Body weight 1875.2 [oz_av] 1875.2 [oz_av] ATHEN A ([facility]) Systolic blood pressure 98 mm[Hg] 98 mm[Hg] A THENA ([facility]) Body height 68 [in_i] 68 [in_i] ERIC ([facility]) Diastolic blood pressure 65 mm[Hg] 65 mm[Hg] ERIC ([facility]) Patient Treatment Plan of Care Planned Activity Planned Date Details Description Data Source (s) Levothyroxine Sodium 0.075 MG Oral Tablet ERIC ([facility]) Levothyroxine Sodium 0.075 MG Oral Tablet ERIC ([facility])
--- OUTSIDE RECORDS SUMMARY | 2020-10-15 21:13 | CCD ---
Author Organization Unknown Address [address] [place] [address] Phone [phone] Care Team Providers Care Bed Manager Name Role Phone Justin Obrien Unavailable Unavailable [...] Results Lab Results None recorded. Past Encounters 08/01/2020 Hypothyroidism Justin Obrien MD: [address] [place] [address], Ph. Social History Tobacco Smoking Status Never Smoker Vaccine List None recorded. Plan of Care Reminders Provider Appointments None recorded. Lab None recorded. Referral None recorded. Procedures None recorded. Surgeries None recorded. Imaging None recorded. Vitals 08/01/2020 01:00PM ESTABLISHED [id number] Height Weight BMI Blood Pressure 68 in 114 lbs 3 oz 17.4 kg/m2 108/77 mm[Hg] 04/19/2020 Height Weight Blood Pressure 68 in 115 lbs 3.2 oz 97/63 mm[Hg] 04/17/2020 Height Weight Blood Pressure 68 in 116 lbs 102/68 mm[Hg] 02/21/2020 Height Weight Blood Pressure 68 in 117 lbs 3.2 oz 98/65 mm[Hg]
--- OUTSIDE RECORDS SUMMARY | 2020-10-15 22:21 | CCD ---
Author Author [facility] Organization [facility] Address Unknown Phone Unavailable Care Team Providers Care Furniture Removalist Name Role Phone Alyson Obrien MD Unavailable [...] is protected by Article 27-F of the [facility] Public Health law. If you continue you may have access to information: Regarding HIV / AIDS; Provided by facilities licensed or operated by the [facility] Office of Mental Health; or Provided by the [facility] Office for People With Developmental Disabilities. If such information is present, then the following [facility] mandated warning applies: This information has been [...] law may result in a fine or longterm sentence or both. A general authorization for the release of medical or other information is NOT sufficient authorization for further disc losure. Encounters Encounter Providers Location Date Indications Data Source(s ) Justin Obrien MD: [address] [place] [address] [phone], Ph. Attender: Justin Obrien MD [facility] Medical 08/14/2020 12:00:00 AM EST [facility] ([facility]) Outpatient Attender: Justin Obrien MD 08/01/2020 12:47:00 PM EST [facility] Justin Obrien MD: [address] [place] [address] [phone], Ph. Attender: Justin Obrien MD [facility] Medical 08/01/2020 12:00:00 AM EST ERIC ([facility]) Justin Obrien MD: [address] [place] [address] [phone], Ph. Attender: Justin Obrien MD [facility] Medical 08/01/2020 12:00:00 AM EST ERIC ([facility]) Outpatient Attender: Justin Obrien MD 07/12/2020 05:54:01 PM EDT [facility] Outpatient Attender: Justin Obrien MD FP 07/12/2020 05:46:00 PM EDT [facility] Outpatient Attender: Justin Obrien MD FP 07/05/2020 01:03:05 PM EDT [facility] Outpatient Attender: Justin Obrien MD FP 06/28/2020 11:52:01 AM EDT [facility] Outpatient Attender: Justin Obrien MD FP 06/22/2020 06:07:01 PM EDT [facility] Outpatient Attender: Justin Obrien MD FP 06/15/2020 06:01:01 PM EDT [facility] Outpatient Attender: Justin Obrien MD FP 06/15/2020 06:01:00 PM EDT [facility] Outpatient Attender: Justin Obrien MD FP 06/13/2020 05:26:01 PM EDT [facility] Outpatient Attender: Justin Obrien MD FP 04/19/2020 01:14:01 PM EDT [facility] Outpatient Attender: Justin Obrien MD FP 04/19/2020 11:40:00 AM EDT [facility] Outpatient Attender: Justin Obrien MD FP 04/19/2020 11:39:01 AM EDT [facility] Outpatient Attender: Justin Obrien MD FP 04/19/2020 10:46:01 AM EDT [facility] Outpatient Attender: Justin Obrien MD FP 04/17/2020 02:32:01 PM EDT [facility] Outpatient Attender: Justin Obrien MD FP 04/17/2020 12:50:00 PM EDT [facility] Outpatient Attender: Justin Obrien MD FP 04/16/2020 10:36:00 AM EDT [facility] Outpatient Attender: Justin Obrien MD FP 04/12/2020 10:44:03 AM EDT [facility] Outpatient Attender: Justin Obrien MD FP 04/12/2020 10:44:01 AM EDT [facility] Outpatient Attender: Justin Obrien MD FP 04/12/2020 10:41:01 AM EDT [facility] Outpatient Attender: Justin Obrien MD FP 04/12/2020 10:39:02 AM EDT [facility] Outpatient Attender: Justin Obrien MD FP 04/12/2020 10:39:01 AM EDT [facility] Outpatient Attender: Justin Obrien MD FP 04/09/2020 02:24:00 PM EDT [facility] Outpatient Attender: Justin Obrien MD 03/28/2020 11:03:05 AM EDT [facility] Outpatient Attender: Justin bOrien MD 03/28/2020 11:02:01 AM EDT [facility] Outpatient Attender: Justin Obrien MD 02/22/2020 01:10:01 PM EDT [facility] Outpatient Attender: Justin Obrien MD 02/22/2020 01:09:00 PM EDT [facility] Outpatient Attender: Justin Obrien MD 02/22/2020 11:51:00 AM EDT [facility] Outpatient Attender: Justin Obrien MD 02/21/2020 04:31:00 PM EDT [facility] Outpatient Attender: Justin Obrien MD 02/21/2020 04:23:00 PM EDT [facility] Outpatient Attender: Justin Obrien MD 02/21/2020 03:06:00 PM EDT [facility] Outpatient Attender: Justin Obrien MD 02/21/2020 03:04:01 PM EDT [facility] Outpatient Attender: Justin Obrien MD 02/21/2020 01:47:01 PM EDT [facility] Medications Medication Brand Name Start Date [...] levothyroxine sodium 0.075 MG Oral Tablet ERIC ([facility] er) Levothyroxine Sodium 0.075 MG Oral Tablet levothyroxin e 75 mcg tablet levothyroxine 75 mcg tablet completed levothyroxine sodium 0.075 MG Oral Tablet ERIC ([facility]) Insurance Providers Payer name Policy type / Coverage type Policy ID Covered republican ID Covered republican's relationship to whittaker Policy Whittaker Plan Information KATIE [id number] SP [id number] [employer]AN [facility] [id number] SP [id number] [facility] O [id number] S [id number] Medicaid S [id number] S [id number] Managed Care - [facility] Community Plan P [id number] S [id number] Medicaid S [id number] S [id number] Managed Care - [facility] Community Plan P UNAVAILABLE S UNAVAILABLE Medicaid S UNAVAILABLE S UNAVAILA BLE Self Pay P UNAVAILABLE S UNAVAILA BLE Problems, Conditions, and Diagnoses Code Display Name Description Problem Type Effective Dates Data Source(s) I78.1 Nevus, non-neoplastic Nevus, non-neoplastic 11:38:14 AM EDT [facility] [id number] Skin lesion Skin Lesion Problem 04/19/2020 12:00:00 AM EDT [place] ([facility]) [id number] Skin lesion Skin Lesion Problem 04/19/2020 12:00:00 AM EDT [facility]) [id number] Other specified hypothyroidism Other specified hypothy roidism 02/22/2020 01:08:25 PM EDT [facility] [id number] Hypothyroidism Hypothyroidism Problem 02/21/2020 12:00: 00 AM EDT [place] ([facility]) [id number] Hypothyroidism Hypothyroidism Problem 02/21/2020 12:00: 00 AM EDT [place] ([facility]) Results ID Date Data Source [id number] 06/15/2020 02:06:30 PM EDT [facility] Labs In-House Blood TestsDate/Time Colle cted: 06/15/2020Test Result Reference Range Normal ValueComments: blood drawKarime Monge, July 12, 2020 2:07 PMAssessment & Plan Orders:[id number] Vst-Est Level I [CPT- 24780] 78261 - Venipuncture [CPT-64906] Name Value Range Interpretation Code Description Data Nisreen rce(s) Supporting Document(s) ID Date Data Source [id number] 06/15/2020 11:25:00 AM EDT [facility] Name Value Range Interpretation Code Description Data Nisreen rce(s) Supporting Document(s) BG FASTING 78 mg/dL 70-100 N [facility] y Health TSH 7.380 microintl units/mL 0.358-3.740 H [facility] ID Date Data Source [id number] 04/19/2020 11:03:04 AM EDT [facility] Measurements & CalculationsHeight: 68 inches (5 [...] during this visit, including review of any ifqk-xuv-gabvvgz medications, herbal therapies, and/or supplements.Allergy ReviewAllergy List [...] Smear/HPV TestingReviewed: Previous Comments: last year in [place] (02/21/2020)Review of Systems General: Complains of see [...] PoorAssessment & Plan Problems:Added: Nevus, non-neoplastic (ICD-448.1) (YTS21-K93.1) Assessment: Instructions: This is likely non cncerous but I am concerned enough about the recent onset of this to recommend dermaology referral and she is amenable to this.Assessed:Other specified hypothyroidism (NBN06-Z33.8) Assessment: Instructions: We recently increased the dose [...] Orders:Adult - Ofc Vst, EST, Level III [CPT-25085] TSH [CPT-01762] Dermatology Consult [CPT-21860] Name Value Range Interpretation Code Description Data Nisreen rce(s) Supporting Document(s) ID Date Data Source [id number] 04/17/2020 01:11:04 PM EDT [facility] Measurements & CalculationsHeight: 68 inches (5 [...] during this visit, including review of any sshq-has-lfrhifh medications, herbal therapies, and/or supplements.Allergy ReviewAllergy List [...] is? PoorAssessment & Plan Problems:Assessed:Other specified hypothyroidism (GXD39-G30.8) Assessment: Instructions: PATIIENT NOT SEEN BY PROVIDER [...] Orders:Adult - Ofc Vst, EST, Level I [CPT-55882] Name Value Range Interpretation Code Description Data Nisreen rce(s) Supporting Document(s) ID Date Data Source [id number] 04/11/2020 12:45:00 PM EDT [facility] Name Value Range Interpretation Code Description Data Nisreen rce(s) Supporting Document(s) BG FASTING 70 mg/dL 70-100 N [facility] y Health TSH 58.600 microintl units/mL 0.358-3.740 [facility] Date Data Source [id number] 04/11/2020 12:45:00 PM EDT [facility] Name Value Range Interpretation Code Description Data Nisreen rce(s) Supporting Document(s) HCT 42.4 % 36.0-47.0 N [facility] HGB 13.2 g/dL 12.0-15.5 N [facility] MCH 31.1 G/DL pg 32.0-36.5 L [facility] MCHC 27.5 PG % 27.0-33.0 [facility] PLATELETS 184 10 10*3/mm3 150-450 N [facility] RBC 4.80 10 10*6/mm3 4.00-5.40 [facility] RDW 12.9 % 11.5-14.5 [facility] WBC TOTAL 7.6 4.0-10.0 [facility] ID Date Data Source [id number] 04/11/2020 10:52:56 AM EDT [facility] Labs In-House Blood TestsDate/Time Colle cted: April 11, 2020 9:50 AMTest Result Reference Range Normal ValueComments: Blood drawn in office; Left AC. Tolerated well.Kiana Akhtar MA, April 11, 2020 10:54 AMAssessment & Plan Orders:[id number] Vst-Est Level I [CPT-42456] 61167 - Venipuncture [CPT-70157] Name Value Range Interpretation Code Description Data Nisreen rce(s) Supporting Document(s) ID Date Data Source [id number] 02/21/2020 03:05:07 PM EDT [facility] Measurements & CalculationsHeight: 68 inches (5 [...] Present Illness (HPI)thy[place] removed last year in [place] for non-cancerous gioter. No records avaiable tosarah [...] during this visit, including review of any pyni-lmq-qcqgwgr medications, herbal therapies, and/or supplements.Allergy ReviewAllergy List [...] FairAssessment & Plan Problems:Added: Other specified hypothyroidism (YYO31-F12.8) Assessment: Instructions: Status post thyroidectomy last year.Doing [...] ElectronicOrders:Adult - Ofc Vst, NEW, Level II [CPT-26295] COMP METABOLIC PANEL [CPT-72156] CBC W/DIFF [CPT-63019] LIPID PANEL [CPT-95579] TSH [CPT-01040] Medications:SYNTHROID 75 MCG ORAL TABLET (LEVOTHYROXINE SODIUM) one tab daily #30[Tablet] x 2 Route:ORAL Entered and Authorized by: Justin Obrien MD Method used: Electronically to [facility]* (retail) [address] [place] [address] Note to Pharmacy: Route: ORAL; RxID: [id number] signed by Justin Obrien MD on 02/22/2020 at 1:08 PM Name Value Range Interpretation Code Description Data Nisreen rce(s) Supporting Document(s) Procedure Vital Signs ID Date Data Source UNK Name Value Range Interpretation Code Description Data Source(s) Body weight 1827 [oz_av] 1827 [oz_av] [facility] ([facility]) Systolic blood pressure 108 mm[Hg] 108 mm[Hg] A [facility]) Body mass index (BMI) [Ratio] 17.4 kg/m2 17.4 k g/m2 [facility]) Body height 68 [in_i] 68 [in_i] [facility] ([facility]) Diastolic blood pressure 77 mm[Hg] 77 mm[Hg] [facility] ([facility]) Body weight 1827 [oz_av] 1827 [oz_av] [facility] ([facility]) Systolic blood pressure 108 mm[Hg] 108 mm[Hg] A [facility]) Body mass index (BMI) [Ratio] 17.4 kg/m2 [facility] Body height 68 [in_i] 68 [in_i] [facility] ([facility]) Diastolic blood pressure 77 mm[Hg] 77 mm[Hg] [facility] ([facility]) Body weight 1843.2 [oz_av] 1843.2 [oz_av] ATHEN A ([facility]) Systolic blood pressure 97 mm[Hg] 97 mm[Hg] A THE[facility] ([facility]) Body height 68 [in_i] 68 [in_i] [facility] ([facility]) Diastolic blood pressure 63 mm[Hg] 63 mm[Hg] [facility] ([facility]) Body weight 1843.2 [oz_av] 1843.2 [oz_av] ATHEN A ([facility]) Systolic blood pressure 97 mm[Hg] 97 mm[Hg] A THENA ([facility]) Body height 68 [in_i] 68 [in_i] ER[facility] ([facility]) Diastolic blood pressure 63 mm[Hg] 63 mm[Hg] ERIC ([facility]) Body weight 1856 [oz_av] 1856 [oz_av] ER[facility] ([facility]) Systolic blood pressure 102 mm[Hg] 102 mm[Hg] A THENA ([facility]) Body height 68 [in_i] 68 [in_i] [facility] ([facility]) Diastolic blood pressure 68 mm[Hg] 68 mm[Hg] ER[facility] ([facility]) Body weight 1856 [oz_av] 1856 [oz_av] [facility] ([facility]) Systolic blood pressure 102 mm[Hg] 102 mm[facility]Hg] [facility] Body height 68 [in_i] 68 [in_i] ERIC ([facility]) Diastolic blood pressure 68 mm[Hg] 68 mm[Hg] ER[facility] ([facility]) Body weight 1875.2 [oz_av] 1875.2 [oz_av] ATHEN A ([facility]) Systolic blood pressure 98 mm[Hg] 98 mm[Hg] A THENA ([facility]) Body height 68 [in_i] 68 [in_i] [facility] ([facility]) Diastolic blood pressure 65 mm[Hg] 65 mm[Hg] [facility] ([facility]) Body weight 1875.2 [oz_av] 1875.2 [oz_av] ATHEN A ([facility]) Systolic blood pressure 98 mm[Hg] 98 mm[Hg] A THENA ([facility]) Body height 68 [in_i] 68 [in_i] [facility] ([facility]) Diastolic blood pressure 65 mm[Hg] 65 mm[Hg] [facility] ([facility]) Patient Treatment Plan of Care Planned Activity Planned Date Details Description Data Source (s) Levothyroxine Sodium 0.075 MG Oral Tablet [facility] ([facility]) Levothyroxine Sodium 0.075 MG Oral Tablet [facility] ([facility])
[2020-10-15] MEDS ORDERED: NAPROXEN 250 MG TAB PO ONE (22:30)
--- NOTE | 2020-10-15 23:01 | REPVR ---
PROCEDURE INFORMATION: Exam: XR Right Finger(s) Exam date and time: 10/15/2020 10:42 PM Age: 25 years old Clinical indication: Pain; Finger(s); Right; Additional info: Jammed finger yesterday TECHNIQUE: Imaging protocol: XR Right fingers. Views: Minimum 2 views. COMPARISON: No relevant prior studies available. FINDINGS: Bones/joints: No fracture or dislocation. The articular margins are within normal limits. Soft tissues: Soft tissue swelling is noted about the PIP joint of the middle finger as well as the proximal volar aspect of the finger. IMPRESSION: 1. Soft tissue swelling of the volar proximal finger and about the PIP joint. 2. Otherwise negative right middle finger. No fracture or dislocation. Electronically signed by: Mario Clemons On 10/15/2020 23:00:42 PM
[2020-10-15 23:20] VITALS: BP 103/54
== END 2020-10-15 23:21 | disposition home or self-care (01) ==
LOC: M ED 21:04
DX: S63.612A Unspecified sprain of right middle finger, initial encounter (principal); X58.XXXA Exposure to other specified factors, initial encounter; Y92.59 Other trade areas as the place of occurrence of the external cause; Y93.89 Activity, other specified; Y99.0 Civilian activity done for income or pay; Z79.890 Hormone replacement therapy; Z88.8 Allergy status to other drugs, medicaments and biological substances

== ENCOUNTER 2021-11-13 20:20 | Emergency (ER) | payer OTHER, MEDICAID ==
[~2021-11-13] VITALS: Ht 172.7 cm; Wt 52.3 kg
[2021-11-13] MEDS ORDERED: predniSONE 20 MG TAB PO ONE (21:40)
[2021-11-13] MEDS ORDERED: PRED20TA PO ×2 (22:09→22:10)
[2021-11-13 22:28] VITALS: BP 116/76
== END 2021-11-13 22:28 | disposition home or self-care (01) ==
LOC: M ED 20:20
DX: H91.92 Unspecified hearing loss, left ear (principal); E03.9 Hypothyroidism, unspecified; Z90.89 Acquired absence of other organs; Z79.899 Other long term (current) drug therapy; Z88.8 Allergy status to other drugs, medicaments and biological substances
CPT/HCPCS: 99283; J7512

== ENCOUNTER → 2023-01-09 | Outpatient (REF) | payer OTHER, MEDICAID ==
[~2023-01-09] MED LIST changes: +PRED20TA PO
[2023-01-09 19:06] LABS: ALBUMIN 4.4 G/DL (3.2-5.2); ALKALINE PHOSPHATASE 63 U/L (46-116); ALT/SGPT 16 U/L (7.0-40); AST/SGOT 14 U/L (<34); BILIRUBIN,TOTAL 0.8 MG/DL (0.3-1.2); BLOOD UREA NITROGEN 13 MG/DL (9-23); CALCIUM LEVEL 8.9 MG/DL (8.5-10.1); CARBON DIOXIDE LEVEL 29 MMOL/L (20-31); CHLORIDE LEVEL 101 MMOL/L (98-107); CHOLESTEROL LEVEL 153 MG/DL (<200); CHOLESTEROL RISK RATIO 2.66 (<5); CREATININE FOR GFR 0.63 MG/DL (0.55-1.30); GLOMERULAR FILTRATION RATE > 60.0 (>60); GLUCOSE, FASTING 103 MG/DL (60-100); HDL CHOLESTEROL 57.5 MG/DL (>40); LDL CHOLESTEROL 79.3 MG/DL (<100); NON-HDL-C 95.5 MG/DL; POTASSIUM SERUM 4.1 MMOL/L (3.5-5.1); SODIUM LEVEL 137 MMOL/L (136-145); TOTAL PROTEIN 7.5 G/DL (5.7-8.2); TRIGLYCERIDES LEVEL 81 MG/DL (<150)
[2023-01-09 19:08] LABS: THYROID STIMULATING HORMONE 23.353 uIU/ML (0.55-4.78)
== END ==
LOC: M LAB REF 16:20
PROVIDERS: ATTEND Family Medicine Addiction Medicine
DX: E03.9 Hypothyroidism, unspecified (principal)

== ENCOUNTER → 2023-09-30 | Outpatient (REF) | payer OTHER ==
[2023-09-30 13:07] LABS: HEMOGLOBIN A1c 5.1 % (4.0-6.0)
[2023-09-30 13:13] LABS: THYROID STIMULATING HORMONE 46.484 uIU/ML (0.55-4.78)
[2023-09-30 13:14] LABS: ALBUMIN 4.3 G/DL (3.2-5.2); ALKALINE PHOSPHATASE 49 U/L (46-116); ALT/SGPT 17 U/L (7.0-40); AST/SGOT 16 U/L (<34); BILIRUBIN,TOTAL 1.6 MG/DL (0.3-1.2); BLOOD UREA NITROGEN 16 MG/DL (9-23); CALCIUM LEVEL 8.8 MG/DL (8.5-10.1); CARBON DIOXIDE LEVEL 28 MMOL/L (20-31); CHLORIDE LEVEL 105 MMOL/L (98-107); CREATININE FOR GFR 0.61 MG/DL (0.55-1.30); GLOMERULAR FILTRATION RATE > 60.0 (>60); GLUCOSE, FASTING 91 MG/DL (60-100); POTASSIUM SERUM 4.2 MMOL/L (3.5-5.1); SODIUM LEVEL 140 MMOL/L (136-145); TOTAL PROTEIN 7.1 G/DL (5.7-8.2)
== END ==
LOC: M LAB REF 11:30
PROVIDERS: ATTEND Family Medicine Addiction Medicine
DX: E03.9 Hypothyroidism, unspecified (principal); R73.03 Prediabetes

== ENCOUNTER 2023-10-01 18:59 | Emergency (ER) | payer OTHER ==
[~2023-10-01] VITALS: Ht 172.7 cm; Wt 57.0 kg
[2023-10-01 20:09] LABS: BASO % 0.3 % (0.0-1.0); EOS # 0.2 10^3/uL (0.0-0.5); EOS % 2.4 % (0.0-3.0); HEMATOCRIT 39.2 % (36.0-47.0); HEMOGLOBIN 12.5 g/dl (12.0-15.5); LYMPH # 2.5 10^3/uL (1.5-5.0); LYMPH % 33.9 % (24.0-44.0); MEAN CORPUSCULAR HEMOGLOBIN 27.5 pg (27.0-33.0); MEAN CORPUSCULAR HGB CONC 31.9 g/dl (32.0-36.5); MEAN CORPUSCULAR VOLUME 86.3 fl (80.0-96.0); MONO # 0.8 10^3/uL (0.0-0.8); MONO % 10.7 % (2.0-8.0); NEUTROPHILS # 3.9 10^3/uL (1.5-8.5); NEUTROPHILS % 52.4 % (36.0-66.0); PLATELET COUNT, AUTOMATED 195 10^3/uL (150-450); RED BLOOD COUNT 4.54 10^6/uL (4.00-5.40); WHITE BLOOD COUNT 7.4 10^3/uL (4.0-10.0)
[2023-10-01 20:23] LABS: LIPASE 28 U/L (12-53)
[2023-10-01 20:25] LABS: ALBUMIN 4.3 G/DL (3.2-5.2); ALKALINE PHOSPHATASE 59 U/L (46-116); ALT/SGPT 16 U/L (7.0-40); AST/SGOT 13 U/L (<34); BILIRUBIN,DIRECT 0.4 MG/DL (<0.4); BILIRUBIN,TOTAL 1.1 MG/DL (0.3-1.2); BLOOD UREA NITROGEN 13 MG/DL (9-23); CALCIUM LEVEL 8.4 MG/DL (8.5-10.1); CARBON DIOXIDE LEVEL 29 MMOL/L (20-31); CHLORIDE LEVEL 106 MMOL/L (98-107); CREATININE FOR GFR 0.65 MG/DL (0.55-1.30); GLOMERULAR FILTRATION RATE > 60.0 (>60); GLUCOSE, FASTING 93 MG/DL (60-100); POTASSIUM SERUM 3.5 MMOL/L (3.5-5.1); SODIUM LEVEL 140 MMOL/L (136-145); TOTAL PROTEIN 6.9 G/DL (5.7-8.2)
[2023-10-01 20:47] LABS: HCG, SERUM QUALITATIVE NEGATIVE (NEGATIVE)
[2023-10-01] MEDS ORDERED: ACETAMINOPHEN TAB 650MG DOSE (2X325MG) PO ONE (21:40)
[2023-10-02] MEDS ORDERED: KETOROLAC TROMETHAMINE 10 MG TAB PO ONE (00:55)
[2023-10-02 01:55] LABS: C REACTIVE PROTEIN QUANTITATIV < 0.40 MG/DL (<1.0)
[2023-10-02 02:58] VITALS: BP 101/59; TEMP 98.1; O2SAT 100
== END 2023-10-02 03:29 | disposition home or self-care (01) ==
LOC: M ED 18:59 → EDBD 18:59 → M ED 10-02 03:29
DX: R10.11 Right upper quadrant pain (principal); R11.2 Nausea with vomiting, unspecified; K76.89 Other specified diseases of liver; K51.90 Ulcerative colitis, unspecified, without complications; F17.290 Nicotine dependence, other tobacco product, uncomplicated; Z79.890 Hormone replacement therapy

== ENCOUNTER → 2023-11-10 | Outpatient (CLI) | payer OTHER ==
[~2023-11-10] MED LIST changes: +PROHANCE 279.3MG/ML 5ML VIAL ONE
== END ==
LOC: M PLAIMG 13:21
PROVIDERS: ATTEND Family Medicine Addiction Medicine
DX: R16.0 Hepatomegaly, not elsewhere classified (principal); K76.89 Other specified diseases of liver; R93.3 Abnormal findings on diagnostic imaging of other parts of digestive tract

== ENCOUNTER → 2024-08-15 | Outpatient (REF) | payer OTHER ==
[~2024-08-15] MED LIST changes: -PROHANCE 279.3MG/ML 5ML VIAL ONE
[2024-08-15 18:37] LABS: ALBUMIN 4.5 G/DL (3.2-5.2); ALKALINE PHOSPHATASE 53 U/L (35-104); ALT/SGPT 13 U/L (7.0-40); AST/SGOT < 8 U/L (<34); BILIRUBIN,TOTAL 1.4 MG/DL (0.3-1.2); BLOOD UREA NITROGEN 12 MG/DL (9-23); CALCIUM LEVEL 9.8 MG/DL (8.5-10.1); CARBON DIOXIDE LEVEL 28 MMOL/L (20-31); CHLORIDE LEVEL 106 MMOL/L (98-107); CHOLESTEROL LEVEL 170 MG/DL (<200); CHOLESTEROL RISK RATIO 3.09 (<5); CREATININE FOR GFR 0.64 MG/DL (0.55-1.30); GLOMERULAR FILTRATION RATE > 60.0 (>60); GLUCOSE, FASTING 90 MG/DL (60-100); HDL CHOLESTEROL 54.9 MG/DL (>40); LDL CHOLESTEROL 97.1 MG/DL (<100); NON-HDL-C 115.1 MG/DL; SODIUM LEVEL 141 MMOL/L (136-145); THYROID STIMULATING HORMONE 5.804 uIU/ML (0.55-4.78); TOTAL PROTEIN 7.9 G/DL (5.7-8.2); TRIGLYCERIDES LEVEL 90 MG/DL (<150)
== END ==
LOC: M LAB REF 16:38
PROVIDERS: ATTEND Family Medicine Addiction Medicine
DX: E03.9 Hypothyroidism, unspecified (principal)

== ENCOUNTER 2024-11-24 18:17 | Emergency (ER) | payer MEDICAID, OTHER, SELFPAY ==
[~2024-11-24] VITALS: Ht 175.3 cm; Wt 55.1 kg
[2024-11-24 19:29] LABS: BASO % 0.2 % (0.0-1.0); EOS # 0.1 10^3/uL (0.0-0.5); EOS % 1.5 % (0.0-3.0); HEMATOCRIT 38.8 % (36.0-47.0); HEMOGLOBIN 12.4 g/dl (12.0-15.5); LYMPH # 3.2 10^3/uL (1.5-5.0); LYMPH % 33.6 % (24.0-44.0); MEAN CORPUSCULAR HEMOGLOBIN 28.1 pg (27.0-33.0); MEAN CORPUSCULAR VOLUME 87.8 fl (80.0-96.0); MONO # 0.7 10^3/uL (0.0-0.8); MONO % 7.5 % (2.0-8.0); NEUTROPHILS # 5.5 10^3/uL (1.5-8.5); PLATELET COUNT, AUTOMATED 193 10^3/uL (150-450); RED BLOOD COUNT 4.42 10^6/uL (4.00-5.40); WHITE BLOOD COUNT 9.6 10^3/uL (4.0-10.0)
[2024-11-24 19:34] LABS: KETONE, URINE AUTO RFX NEGATIVE (NEGATIVE); LEUKOCYTE ESTERASE UR AUTO RFX NEGATIVE (NEGATIVE); NITRITE, URINE AUTO RFX NEGATIVE (NEGATIVE); RBC, URINE AUTO RFX 1 /HPF (0-3); SQUAM EPITHELIAL CELL UR AURFX 0 /HPF (0-6); WBC, URINE AUTO RFX 0 /HPF (0-3)
[2024-11-24 19:41] LABS: PROTHROMBIN TIME 13.5 SECONDS (12.5-14.5)
[2024-11-24 19:44] LABS: LIPASE 30 U/L (12-53)
[2024-11-24 19:46] LABS: ALBUMIN 4.1 G/DL (3.2-5.2); ALKALINE PHOSPHATASE 55 U/L (35-104); ALT/SGPT 13 U/L (7.0-40); AST/SGOT 9 U/L (<34); BILIRUBIN,DIRECT 0.3 MG/DL (<0.4); BLOOD UREA NITROGEN 19 MG/DL (9-23); CALCIUM LEVEL 8.8 MG/DL (8.5-10.1); CARBON DIOXIDE LEVEL 28 MMOL/L (20-31); CHLORIDE LEVEL 106 MMOL/L (98-107); CREATININE FOR GFR 1.05 MG/DL (0.55-1.30); GLOMERULAR FILTRATION RATE > 60.0 (>60); GLUCOSE, FASTING 86 MG/DL (60-100); SODIUM LEVEL 141 MMOL/L (136-145)
[2024-11-24 19:48] LABS: HCG, SERUM QUALITATIVE NEGATIVE (NEGATIVE)
[2024-11-25] MEDS: ONDANSETRON 4MG 2ML VIAL IV ONE (00:39)
[2024-11-25] MEDS: KETOROLAC 30 MG/ML 1ML VIAL IV ONE ×2 (00:39→03:04)
[2024-11-25] MEDS ORDERED: ISOVUE-370 76% 100ML VIAL As Ordered ONE (00:43)
[2024-11-25] MEDS: ACETAMINOPHEN *IV* 1,000 MG in IV 1 EA IV ONE (02:11)
[2024-11-25] MEDS ORDERED: NAPR-837 PO (04:27)
[2024-11-25 04:35] VITALS: BP 93/64; TEMP 97.3; O2SAT 98
== END 2024-11-25 04:37 | disposition home or self-care (01) ==
LOC: M ED 18:17 → EDBD 18:17 → M ED 11-25 04:37
DX: K62.89 Other specified diseases of anus and rectum (principal); N83.299 Other ovarian cyst, unspecified side; E03.9 Hypothyroidism, unspecified; K59.00 Constipation, unspecified; F17.290 Nicotine dependence, other tobacco product, uncomplicated; Z79.899 Other long term (current) drug therapy; Z88.8 Allergy status to other drugs, medicaments and biological substances
CPT/HCPCS: 74177; 80048; 80076; 81001; 83605; 83690; 84703; 85025; 85610; 85730; 86850; 86900; 86901; 96374; 96375; 96376; 99284; J0131; J1885; J2405; Q9967

== ENCOUNTER → 2025-04-03 | Outpatient (REF) | payer MEDICAID, OTHER ==
[~2025-04-03] MED LIST changes: +NAPR-837 PO
[2025-04-03 18:49] LABS: ALT/SGPT 19 U/L (7.0-40); AST/SGOT 19 U/L (<34); CALCIUM LEVEL 8.5 MG/DL (8.5-10.1); CARBON DIOXIDE LEVEL 25 MMOL/L (20-31); CHLORIDE LEVEL 106 MMOL/L (98-107); CHOLESTEROL LEVEL 162 MG/DL (<200); CHOLESTEROL RISK RATIO 3.05 (<5); CREATININE FOR GFR 0.72 MG/DL (0.55-1.30); GLOMERULAR FILTRATION RATE > 90.0 (>60); LDL CHOLESTEROL 96.5 MG/DL (<100); NON-HDL-C 108.9 MG/DL; POTASSIUM SERUM 4.3 MMOL/L (3.5-5.1); SODIUM LEVEL 144 MMOL/L (136-145); TRIGLYCERIDES LEVEL 62 MG/DL (<150)
== END ==
LOC: M LAB REF 17:37
PROVIDERS: ATTEND Family Medicine Addiction Medicine
DX: E03.9 Hypothyroidism, unspecified (principal)

== ENCOUNTER → 2025-05-17 | Outpatient (CLI) | payer OTHER | LOC: M SOG 06:50 | PROVIDERS: ATTEND Neuromusculoskeletal Medicine, Sports Medicine | DX: Z53.9 Procedure and treatment not carried out, unspecified reason (principal) ==

== ENCOUNTER → 2025-06-23 | Outpatient (REF) | payer OTHER | LOC: M LAB REF 14:19 | PROVIDERS: ATTEND Family Medicine Addiction Medicine | DX: R35.0 Frequency of micturition (principal) ==

== ENCOUNTER 2025-06-29 09:49 | Emergency (ER) | payer MEDICAID, OTHER, SELFPAY ==
[~2025-06-29] VITALS: Ht 175.3 cm; Wt 58.4 kg
[2025-06-29 09:51] VITALS: TEMP 98.1
[2025-06-29] MEDS ORDERED: LEVO137T2 (10:02)
[2025-06-29] MEDS ORDERED: MIRA3350 PO (10:02)
[2025-06-29] MEDS ORDERED: COLA100C5 PO (12:09)
[2025-06-29] MEDS ORDERED: META28.32 PO (12:09)
[2025-06-29] MEDS: MAGNESIUM CITRATE 300 ML BTL PO ONE (12:23)
[2025-06-29 12:25] VITALS: BP 114/59; O2SAT 100
== END 2025-06-29 12:29 | disposition home or self-care (01) ==
LOC: M ED 09:49
DX: K59.00 Constipation, unspecified (principal); Z87.19 Personal history of other diseases of the digestive system; F17.290 Nicotine dependence, other tobacco product, uncomplicated; Z88.8 Allergy status to other drugs, medicaments and biological substances